=== PATIENT | male | born 1995 | race Hispanic/Latino ===

== ENCOUNTER 2023-07-19 00:53 | Emergency (ER) | payer SELFPAY ==
[2023-07-19] MEDS ORDERED: Ketorolac Tromethamine 10 MG TAB ONE (02:00)
[2023-07-19] MEDS ORDERED: Lidocaine 4% Patch ONE (02:00)
== END 2023-07-19 02:32 | disposition home or self-care (01) ==
LOC: MADERS 00:53
DX: S42.022A Displaced fracture of shaft of left clavicle, initial encounter for closed fracture (principal); V80.018A Animal-rider injured by fall from or being thrown from other animal in noncollision accident, initial encounter